=== PATIENT | male | born 1950 | race Caucasian/White ===

== ENCOUNTER 2023-04-29 16:32 | Inpatient (IN) | payer MEDICARE, OTHER ==
[~2023-04-29] VITALS: Ht 182.9 cm; Wt 95.3 kg
[2023-04-29] MEDS ORDERED: MORPHINE SULFATE INJ 2 MG/ML DISP.SYRIN ONE (17:10)
[2023-04-29] MEDS ORDERED: MORPHINE SULFATE INJ 4 MG/ML DISP.SYRIN ONE ×2 (17:10→19:03)
[2023-04-29] MEDS: MORPHINE SULFATE INJ 2 MG/ML DISP.SYRIN IV ONE ×2 (17:20→19:15)
[2023-04-29 17:25] LABS: BASOPHILS % (AUTO) 0.3 % (0.0-2.0); EOSINOPHILS # (AUTO) 0.2 K/uL (0.0-0.7); EOSINOPHILS % (AUTO) 2.1 % (0.0-6.0); HEMATOCRIT 41 % (39-51); LYMPHOCYTES # (AUTO) 1.8 K/uL (0.8-4.8); LYMPHOCYTES % (AUTO) 16.4 % (20.0-44.0); MEAN CORPUSCULAR HEMOGLOBIN 31 PG (26.0-33.0); MEAN CORPUSCULAR HGB CONC 34 g/dl (31.0-36.0); MEAN CORPUSCULAR VOLUME 90 fL (80-96); MONOCYTES # (AUTO) 0.4 K/uL (0.1-1.30); MONOCYTES % (AUTO) 4.1 % (2.0-12.0); NEUTROPHILS # (AUTO) 8.3 K/uL (1.8-8.9); NEUTROPHILS % (AUTO) 77.1 % (43.0-81.0); PLATELET COUNT (AUTO) 213 K/uL (150-450); RED BLOOD CELL COUNT(AUTO) 4.59 MIL/uL (4.5-6.0); RED CELL DISTRIBUTION WIDTH 14.7 % (11.5-15.0); WHITE BLOOD COUNT (AUTO) 10.7 K/uL (4.3-11.0)
[2023-04-29 17:34] LABS: CALCIUM, SERUM 8.8 mg/dL (8.5-10.1); CARBON DIOXIDE 26 mmol/L (21-32); CHLORIDE 102 mmol/L (98-107); CREATININE 0.7 mg/dL (0.6-1.3); GLUCOSE 121 mg/dL (74-106); POTASSIUM 3.4 mmol/L (3.5-5.1); SODIUM SERUM 140 mmol/L (136-145); UREA NITROGEN, BLOOD 16 mg/dL (7-18)
[2023-04-29 17:37] LABS: INR 1.14 (0.91-1.10)
[2023-04-29] MEDS ORDERED: FINA5TAB4 PO (18:00)
[2023-04-29] MEDS ORDERED: SITA50TA PO (18:00)
[2023-04-29] MEDS ORDERED: CELE200C PO (18:00)
[2023-04-29] MEDS ORDERED: DOXA4TAB3 PO (18:00)
[2023-04-29] MEDS ORDERED: METF-881 PO (18:00)
[2023-04-29] MEDS ORDERED: INSU100I24 SQ (18:00)
[2023-04-29] MEDS ORDERED: SERT100T PO (18:00)
[2023-04-29] MEDS ORDERED: HYDR-500 PO (18:00)
[2023-04-29] MEDS ORDERED: CAPT25TA3 PO (18:00)
[2023-04-29] MEDS ORDERED: LORA2TAB95 PO (18:00)
[2023-04-29] MEDS ORDERED: LISI10TA29 PO (18:00)
[2023-04-29] MEDS ORDERED: EMPA10TA PO (18:00)
[2023-04-29] MEDS ORDERED: CHOL500062 PO (18:00)
[2023-04-29] MEDS ORDERED: BUPR-96 PO (18:00)
[2023-04-29] MEDS ORDERED: CAPTOPRIL 25 MG TABLET PO PRN (20:00)
[2023-04-29] MEDS ORDERED: hydrALAZINE HCL IV 20 MG VIAL IV PRN (20:00)
[2023-04-29] MEDS ORDERED: ONDANSETRON HCL/PF 4 MG/2 ML VIAL IVP PRN (20:00)
[2023-04-29] MEDS ORDERED: ACETAMINOPHEN 325 MG TABLET PO PRN (20:00)
[2023-04-29] MEDS ORDERED: DEXTROSE 50%-WATER 50 ML DISP.SYRIN IV PRN (20:00)
[2023-04-29 21:00] VITALS: BP 147/74; TEMP 98.6; O2SAT 96
[2023-04-29] MEDS: IV NS 0.9% 1,000 ML IV SCH (21:52)
[2023-04-29] MEDS: INSULIN GLARGINE, 100 UNIT/ML CARTRIDGE SQ SCH (22:00)
[2023-04-29] MEDS: BLOOD SUGAR DIAGNOSTIC 1 EACH STRIP VI SCH (22:41)
[2023-04-30 00:57] VITALS: BP 139/73; O2SAT 98
[2023-04-30] MEDS: MORPHINE SULFATE INJ 2 MG/ML DISP.SYRIN IV PRN (00:57)
[2023-04-30] MEDS: POTASSIUM CHLORIDE 20 MEQ TAB.PRT.SR PO ONE (05:31)
[2023-04-30 06:52] LABS: BASOPHILS % (AUTO) 0.2 % (0.0-2.0); EOSINOPHILS # (AUTO) 0.1 K/uL (0.0-0.7); EOSINOPHILS % (AUTO) 0.6 % (0.0-6.0); HEMATOCRIT 38 % (39-51); HEMOGLOBIN 12.9 g/dL (13.5-17.5); LYMPHOCYTES # (AUTO) 1.7 K/uL (0.8-4.8); LYMPHOCYTES % (AUTO) 14.7 % (20.0-44.0); MEAN CORPUSCULAR HEMOGLOBIN 30 PG (26.0-33.0); MEAN CORPUSCULAR HGB CONC 34 g/dl (31.0-36.0); MEAN CORPUSCULAR VOLUME 90 fL (80-96); MONOCYTES # (AUTO) 0.7 K/uL (0.1-1.30); MONOCYTES % (AUTO) 5.7 % (2.0-12.0); NEUTROPHILS # (AUTO) 9.1 K/uL (1.8-8.9); NEUTROPHILS % (AUTO) 78.8 % (43.0-81.0); PLATELET COUNT (AUTO) 211 K/uL (150-450); RED BLOOD CELL COUNT(AUTO) 4.27 MIL/uL (4.5-6.0); RED CELL DISTRIBUTION WIDTH 14.1 % (11.5-15.0); WHITE BLOOD COUNT (AUTO) 11.6 K/uL (4.3-11.0)
[2023-04-30 07:17] LABS: ALBUMIN 3.5 g/dL (3.4-5.0); BILIRUBIN,TOTAL 0.9 mg/dL (0.2-1.0); CALCIUM, SERUM 8.6 mg/dL (8.5-10.1); CREATININE 0.7 mg/dL (0.6-1.3); MAGNESIUM 2.2 mg/dL (1.8-2.4); PHOSPHORUS 4.3 mg/dL (2.5-4.9); POTASSIUM 3.9 mmol/L (3.5-5.1); TOTAL PROTEIN, SERUM 6.2 g/dL (6.4-8.2)
[2023-04-30 07:30] VITALS: BP 145/68; TEMP 98.1; O2SAT 96
[2023-04-30] MEDS: BUPROPION XL 150 MG TAB.ER.24 PO SCH (09:00)
[2023-04-30] MEDS: LISINOPRIL (10MG) 10 MG TABLET PO SCH (09:00)
[2023-04-30] MEDS: SERTRALINE HCL 50 MG TABLET PO SCH (09:00)
[2023-04-30] MEDS: DOXAZOSIN MESYLATE (4 MG) 4 MG TABLET PO SCH (09:00)
[2023-04-30] MEDS: FINASTERIDE (5 MG) 5 MG TABLET PO SCH (09:50)
[2023-04-30] MEDS: MORPHINE SULFATE INJ 4 MG/ML DISP.SYRIN IV PRN (10:34)
[2023-04-30 16:00] VITALS: BP 137/76; TEMP 97.9; O2SAT 96
[2023-04-30] MEDS: INSULIN REGULAR, HUMAN 100 UNIT/ML 3 ML VIAL SQ PRN (18:30)
[2023-04-30 20:00] VITALS: BP 148/73; TEMP 99.7; O2SAT 98
[2023-04-30] MEDS: HEPARIN SODIUM, PORCINE 5000 UNITS/1 ML VIAL SQ SCH (21:00)
[2023-04-30] MEDS: *INSULIN REGULAR(HUMULIN R)HUM 100 UNIT/ML VIAL SQ PRN (21:36)
[2023-05-01] VITALS (7 sets, daily range): BP systolic 104–140; BP diastolic 59–78; TEMP 97.4–98.6; O2SAT 94–98
[2023-05-01] MEDS ORDERED: POLYMYXIN B SULFATE 500,000 UNITS ONE (06:58)
[2023-05-01] MEDS ORDERED: ANESTHESIA TRAY IN PYXIS 1 EA TRAY MC ONE ×2 (06:59→07:11)
[2023-05-01] MEDS ORDERED: VANCOMYCIN 1 GM VIAL ONE (06:59)
[2023-05-01] MEDS ORDERED: BUPIVACAINE 0.5 % PF 150 MG/30 ML VIAL ONE (06:59)
[2023-05-01] MEDS ORDERED: FENTANYL PF 100MCG/2ML AMPUL ONE (07:04)
[2023-05-01] MEDS ORDERED: FAMOTIDINE/PF INJ 20 MG/2 ML VIAL IV ONE (07:05)
[2023-05-01] MEDS ORDERED: VASOPRESSIN INJ 20 UNIT/ML VIAL ONE (07:05)
[2023-05-01] MEDS ORDERED: ROPIVACAINE HCL 0.5% 5 MG/ML 30ML VIAL ONE (07:10)
[2023-05-01] MEDS ORDERED: HYDROMORPHONE INJ 2 MG/ML DISP.SYRIN ONE (08:42)
[2023-05-01] MEDS ORDERED: ALBUMIN 5% 0 ML IV ONE (09:16)
[2023-05-01] MEDS ORDERED: ALBUMIN 5% 250 ML IV ONE ×2 (09:52→10:33)
[2023-05-01] MEDS: CEFAZOLIN 2 GM in IV D5W 100 ML IV SCH (17:12)
[2023-05-02] MEDS: LORAZEPAM 1 MG TABLET PO PRN (00:07)
[2023-05-02 07:09] LABS: BASOPHILS % (AUTO) 0.3 % (0.0-2.0); EOSINOPHILS # (AUTO) 0.1 K/uL (0.0-0.7); EOSINOPHILS % (AUTO) 0.6 % (0.0-6.0); HEMATOCRIT 24 % (39-51); HEMOGLOBIN 8.1 g/dL (13.5-17.5); LYMPHOCYTES # (AUTO) 1.5 K/uL (0.8-4.8); LYMPHOCYTES % (AUTO) 13.4 % (20.0-44.0); MEAN CORPUSCULAR HEMOGLOBIN 30 PG (26.0-33.0); MEAN CORPUSCULAR HGB CONC 34 g/dl (31.0-36.0); MEAN CORPUSCULAR VOLUME 89 fL (80-96); MONOCYTES % (AUTO) 8.9 % (2.0-12.0); NEUTROPHILS # (AUTO) 8.5 K/uL (1.8-8.9); NEUTROPHILS % (AUTO) 76.8 % (43.0-81.0); PLATELET COUNT (AUTO) 225 K/uL (150-450); RED BLOOD CELL COUNT(AUTO) 2.67 MIL/uL (4.5-6.0); RED CELL DISTRIBUTION WIDTH 13.9 % (11.5-15.0); WHITE BLOOD COUNT (AUTO) 11.1 K/uL (4.3-11.0)
[2023-05-02 07:42] LABS: CALCIUM, SERUM 7.6 mg/dL (8.5-10.1); CARBON DIOXIDE 24 mmol/L (21-32); CHLORIDE 99 mmol/L (98-107); CREATININE 0.8 mg/dL (0.6-1.3); GLUCOSE 226 mg/dL (74-106); MAGNESIUM 2.3 mg/dL (1.8-2.4); PHOSPHORUS 2.3 mg/dL (2.5-4.9); POTASSIUM 3.8 mmol/L (3.5-5.1); SODIUM SERUM 133 mmol/L (136-145); UREA NITROGEN, BLOOD 20 mg/dL (7-18)
[2023-05-02 09:00] VITALS: BP 139/70
[2023-05-02] MEDS: ENOXAPARIN SODIUM 40 MG/0.4 ML DISP.SYRIN SQ SCH (09:00)
[2023-05-02] MEDS ORDERED: ENOX40DI SQ (15:36)
[2023-05-02] MEDS: K PHOS NEUTRAL 250 MG TABLET PO ONE (16:20)
== END 2023-05-02 21:05 | DRG 481 ==
LOC: ER 16:35 → MED 20:50
PROVIDERS: ADMIT Internal Medicine; ATTEND Nurse Practitioner Acute Care
PROC: 0QS706Z Reposition Left Upper Femur with Intramedullary Internal Fixation Device, Open Approach (ICD-10-PCS; principal; 2023-05-01)
DX: M80.852A Other osteoporosis with current pathological fracture, left femur, initial encounter for fracture (principal); D62 Acute posthemorrhagic anemia; I50.32 Chronic diastolic (congestive) heart failure; E87.1 Hypo-osmolality and hyponatremia; W01.0XXA Fall on same level from slipping, tripping and stumbling without subsequent striking against object, initial encounter; E11.9 Type 2 diabetes mellitus without complications; I10 Essential (primary) hypertension; Y92.89 Other specified places as the place of occurrence of the external cause; Z79.84 Long term (current) use of oral hypoglycemic drugs; Z79.4 Long term (current) use of insulin; Z79.899 Other long term (current) drug therapy; I11.0 Hypertensive heart disease with heart failure; F41.9 Anxiety disorder, unspecified; E87.6 Hypokalemia; Z79.01 Long term (current) use of anticoagulants
CPT/HCPCS: 36415; 71045-TC; 73502; 73552; 73700-TC; 80048-TC; 80053-TC; 82962-TC; 83735-TC; 84100-TC; 85025-TC; 85027-TC; 85610-TC; 85730-TC; 86850-TC; 93307-TC; 97110-TC; 97112-TC; 97530-TC; A4223; A6403; G0378; J0690; J1100; J1170; J1200; J1815; J2270; J2405; J2704; J2795; J3010; J3370; J3490; J7030; J7040; J7060; P9045